=== PATIENT | male | born 1955 | race Caucasian/White ===

== ENCOUNTER 2021-10-01 17:58 | Emergency (ER) | payer MEDICARE, OTHER ==
[~2021-10-01] VITALS: Ht 180.3 cm; Wt 89.4 kg
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
[2021-10-01] MEDS ORDERED: HYDROCODON-ACE1 EAC8 PO (19:57)
[2021-10-01] MEDS ORDERED: NEURONTIN300 MG PO (19:58)
== END 2021-10-01 22:22 | disposition home or self-care (01) ==
LOC: ED 17:58
DX: S06.0X0A Concussion without loss of consciousness, initial encounter (principal); S01.01XA Laceration without foreign body of scalp, initial encounter; S16.1XXA Strain of muscle, fascia and tendon at neck level, initial encounter; Z23 Encounter for immunization; G47.30 Sleep apnea, unspecified; Z79.891 Long term (current) use of opiate analgesic; Z79.899 Other long term (current) drug therapy; Y04.8XXA Assault by other bodily force, initial encounter
CPT/HCPCS: 70450; 72125; 90471; 90714; 99283-25